=== PATIENT | female | born 1975 | race American Indian/Alaskan Native ===

== ENCOUNTER 2016-10-11 16:40 | Emergency (ER) | payer MEDICAID ==
[2016-10-11 18:36] LABS: Basophils % (Auto) 0.5 % (0.0-1.8); Eosinophils % (Auto) 6.8 % (0.0-4.3); Hemoglobin 11.5 gm/dl (10.1-14.3); Mean Corpuscular HGB Conc 32 % (30-34); Mean Corpuscular Hemoglobin 31 pg (28-32); Mean Corpuscular Volume 96 fl (79-97); Platelet Count 274 K/mm3 (140-440); Red Blood Count 3.75 M/mm3 (3.65-5.03); Red Cell Distribution Width 13.5 % (13.2-15.2); White Blood Count 9.2 K/mm3 (4.5-11.0)
[2016-10-11 18:48] LABS: Anion Gap 17 mmol/L; BUN/Creatinine Ratio 18.33; Blood Urea Nitrogen 11 mg/dL (7-17); Carbon Dioxide 24 mmol/L (22-30); Chloride 102.7 mmol/L (98-107); Glucose 94 mg/dL (65-100); Potassium 4.1 mmol/L (3.6-5.0); Sodium 140 mmol/L (137-145)
[2016-10-11] MEDS ORDERED: MORPHINE IV ONE (20:19)
[2016-10-11] MEDS ORDERED: MOTRIN PO ONE (20:19)
[2016-10-11] MEDS ORDERED: ZOFRAN IV ONE (20:19)
[2016-10-11] MEDS ORDERED: KEPPRA 1,000 MG/NS 0.75% 100ML 1,000 MG/100 ML BAG IV ONE (20:52)
[2016-10-11 21:13] LABS: Alanine Aminotransferase 9 units/L (7-56); Albumin 3.8 g/dL (3.9-5); Alkaline Phosphatase 73 units/L (35-129); Bilirubin,Total 0.3 mg/dL (0.1-1.2); Lipase 16 units/L (13-60); Total Protein 7.5 g/dL (6.3-8.2)
[2016-10-11 21:17] LABS: Bilirubin,Direct < 0.2 mg/dL (0-0.2); Bilirubin,Indirect 0.1 mg/dL
[2016-10-11 21:27] LABS: Bilirubin,Urine NEG (Negative); Blood,Urine NEG (Negative); Ketones,Urine NEG (Negative); Leukocyte Esterase,Urine TR (Negative); Mucus,Urine FEW /HPF; Nitrite,Urine NEG (Negative); Protein,Urine <15 mg/dL mg/dL (Negative); Urobilinogen,Urine < 2.0 mg/dL (<2.0)
[2016-10-11 21:39] LABS: Magnesium 2.1 mg/dL (1.7-2.3)
--- NOTE | 2016-10-12 00:23 | Emergency Department Report ---
HPI - General Chief Complaint: Seizure Time Seen by Provider: 10/11/16 20:11 - HPI HPI: The patient is a 41-year-old female who presents for evaluation of cough and chest pain. The patient reports cough and chest pain since this morning, for the past greater than 8 hours prior to my evaluation. She states that her cough has been nonproductive, that her chest pain has been bilateral, aching in quality, mild to moderate in severity, elicited with coughing, relieved with rest. The patient shares that she also experienced a seizure today at 2 PM. She has a history of seizure years ago but has not had a seizure recently. She has not been on antiseizure medication for some time. The patient denies trauma to the head or chest, headache, neck pain or stiffness, dyspnea, hemoptysis, unilateral leg swelling, oral contraceptive use, recent immobilization, history of DVT or PE, hx cancer. ED Past Medical Hx - Past Medical History Previous Medical History?: Yes Hx Hypertension: Yes Hx Seizures: Yes Additional medical history: deaf - Surgical History Past Surgical History?: Yes Additional Surgical History: abd surgery as per family - Social History Smoking Status: Never Smoker Substance Use Type: None - Medications Home Medications: Home Medications Medication Instructions Recorded Confirmed Last Taken Type Doxycycline Hyclate [Doxycycline 100 mg PO Q12HR #14 tab 10/12/16 Unknown Rx Hyclate TAB] HYDROcodone/APAP 7.5-325 [[place] 1 each PO Q8HR PRN #15 tablet 10/12/16 Unknown Rx 7.5-325 mg TAB] Ibuprofen [Motrin] 600 mg PO Q6HR #30 tablet 10/12/16 Unknown Rx levETIRAcetam [Keppra TAB] 500 mg PO BID #30 tablet 10/12/16 Unknown Rx ED Review of Systems ROS: Stated complaint: SEIZURE Other details as noted in HPI Constitutional: denies: fever ENT: denies: throat or neck pain Respiratory: reports cough denies: shortness of breath Cardiovascular: denies: chest pain Endocrine: denies unexplained weight loss or gain Gastrointestinal: denies: abdominal pain, nausea Genitourinary: denies: dysuria Musculoskeletal: denies: leg swelling Skin: denies: rash Neurological: reports denies: headache Hematological/Lymphatic: denies: easy bleeding or easy bruising Psych: denies sadness or hopelessness Physical Exam - Physical Exam Vital Signs: Vital Signs 10/11/16 10/11/16 10/11/16 16:48 18:18 18:20 Temperature 102.2 F H Pulse Rate 89 76 77 Respiratory 24 22 21 Rate Blood Pressure 166/99 O2 Sat by Pulse 98 Oximetry 10/11/16 10/11/16 10/11/16 18:40 18:50 18:59 Temperature Pulse Rate 64 74 Respiratory 21 17 18 Rate Blood Pressure 142/68 O2 Sat by Pulse 99 99 98 Oximetry 10/11/16 10/11/16 10/11/16 19:00 19:10 19:20 Temperature Pulse Rate 67 68 63 Respiratory 17 21 17 Rate Blood Pressure 142/68 147/84 139/76 O2 Sat by Pulse 98 98 97 Oximetry 10/11/16 10/11/16 10/11/16 19:30 19:40 19:50 Temperature Pulse Rate 73 70 67 Respiratory 13 17 18 Rate Blood Pressure 139/76 127/58 141/84 O2 Sat by Pulse 98 99 99 Oximetry 10/11/16 10/11/16 10/11/16 20:00 20:10 20:20 Temperature Pulse Rate 71 76 68 Respiratory 24 19 13 Rate Blood Pressure 141/84 147/81 132/84 O2 Sat by Pulse 96 99 99 Oximetry 10/11/16 10/11/16 10/11/16 20:30 20:40 20:42 Temperature Pulse Rate 75 72 Respiratory 26 H 13 18 Rate Blood Pressure 132/84 155/86 O2 Sat by Pulse 99 98 Oximetry 10/11/16 10/11/16 10/11/16 20:50 21:00 21:10 Temperature Pulse Rate 68 71 73 Respiratory 18 29 H 25 H Rate Blood Pressure 152/90 152/90 166/88 O2 Sat by Pulse 98 97 97 Oximetry 10/11/16 10/11/16 10/11/16 21:20 21:30 21:40 Temperature Pulse Rate 70 68 71 Respiratory 19 18 18 Rate Blood Pressure 166/88 166/88 142/88 O2 Sat by Pulse 98 97 96 Oximetry 10/11/16 10/11/16 10/11/16 21:50 22:00 22:10 Temperature Pulse Rate 72 74 73 Respiratory 16 17 18 Rate Blood Pressure 130/79 130/79 128/77 O2 Sat by Pulse 97 97 97 Oximetry 10/11/16 10/11/16 10/11/16 22:20 22:30 22:40 Temperature Pulse Rate 71 73 69 Respiratory 15 14 24 Rate Blood Pressure 166/88 127/79 127/79 O2 Sat by Pulse 97 96 98 Oximetry 10/11/16 10/11/16 10/11/16 22:50 22:56 23:00 Temperature 98.4 F Pulse Rate 71 66 Respiratory 15 16 Rate Blood Pressure 150/83 127/79 O2 Sat by Pulse 97 97 Oximetry 10/11/16 10/11/16 10/11/16 23:10 23:20 23:30 Temperature Pulse Rate 69 72 62 Respiratory 16 16 18 Rate Blood Pressure 131/69 122/73 122/73 O2 Sat by Pulse 97 96 95 Oximetry 10/11/16 10/11/16 10/12/16 23:41 23:51 00:00 Temperature Pulse Rate 64 64 72 Respiratory 11 L 15 15 Rate Blood Pressure 100/51 104/65 O2 Sat by Pulse 96 96 94 Oximetry 10/12/16 00:11 Temperature Pulse Rate 69 Respiratory 17 Rate Blood Pressure 104/65 O2 Sat by Pulse 96 Oximetry Physical Exam: General: well-nourished, well-developed, no acute distress Head: Normocephalic, atraumatic Eyes: normal sclera, patient cross eyed (at baseline per adult niece in room), EOMI, PERRL ENT: Mucous membranes are pink and moist Neck: trachea midline, neck supple, No neck stiffness, no cervical adenopathy Respiratory: Breath sounds equal bilaterally, no wheezing, rales, or rhonchi Cardio: S1 and S2 present, no murmurs, rubs, gallops, capillary refill is brisk Abdomen: Normoactive bowel sounds, soft abdomen, no tenderness Chest WALL/Back: Positive tenderness to palpation of the bilateral anterior chest wall Musc: No pitting edema Skin: No rash Neuro: Alert and oriented, no facial drooping, no pronator drift, no obvious gross sensation and motor deficit in the arms or legs, reflexes 2+ symmetric on DTR testing, Romberg downgoing, no obvious gross neuro deficits on exam Psych: Normal affect ED Course Vital Signs 10/11/16 10/11/16 10/11/16 16:48 18:18 18:20 Temperature 102.2 F H Pulse Rate 89 76 77 Respiratory 24 22 21 Rate Blood Pressure 166/99 O2 Sat by Pulse 98 Oximetry 10/11/16 10/11/16 10/11/16 18:40 18:50 18:59 Temperature Pulse Rate 64 74 Respiratory 21 17 18 Rate Blood Pressure 142/68 O2 Sat by Pulse 99 99 98 Oximetry 10/11/16 10/11/16 10/11/16 19:00 19:10 19:20 Temperature Pulse Rate 67 68 63 Respiratory 17 21 17 Rate Blood Pressure 142/68 147/84 139/76 O2 Sat by Pulse 98 98 97 Oximetry 10/11/16 10/11/16 10/11/16 19:30 19:40 19:50 Temperature Pulse Rate 73 70 67 Respiratory 13 17 18 Rate Blood Pressure 139/76 127/58 141/84 O2 Sat by Pulse 98 99 99 Oximetry 10/11/16 10/11/16 10/11/16 20:00 20:10 20:20 Temperature Pulse Rate 71 76 68 Respiratory 24 19 13 Rate Blood Pressure 141/84 147/81 132/84 O2 Sat by Pulse 96 99 99 Oximetry 10/11/16 10/11/16 10/11/16 20:30 20:40 20:42 Temperature Pulse Rate 75 72 Respiratory 26 H 13 18 Rate Blood Pressure 132/84 155/86 O2 Sat by Pulse 99 98 Oximetry 10/11/16 10/11/16 10/11/16 20:50 21:00 21:10 Temperature Pulse Rate 68 71 73 Respiratory 18 29 H 25 H Rate Blood Pressure 152/90 152/90 166/88 O2 Sat by Pulse 98 97 97 Oximetry 10/11/16 10/11/16 10/11/16 21:20 21:30 21:40 Temperature Pulse Rate 70 68 71 Respiratory 19 18 18 Rate Blood Pressure 166/88 166/88 142/88 O2 Sat by Pulse 98 97 96 Oximetry 10/11/16 10/11/16 10/11/16 21:50 22:00 22:10 Temperature Pulse Rate 72 74 73 Respiratory 16 17 18 Rate Blood Pressure 130/79 130/79 128/77 O2 Sat by Pulse 97 97 97 Oximetry 10/11/16 10/11/16 10/11/16 22:20 22:30 22:40 Temperature Pulse Rate 71 73 69 Respiratory 15 14 24 Rate Blood Pressure 166/88 127/79 127/79 O2 Sat by Pulse 97 96 98 Oximetry 10/11/16 10/11/16 10/11/16 22:50 22:56 23:00 Temperature 98.4 F Pulse Rate 71 66 Respiratory 15 16 Rate Blood Pressure 150/83 127/79 O2 Sat by Pulse 97 97 Oximetry 10/11/16 10/11/16 10/11/16 23:10 23:20 23:30 Temperature Pulse Rate 69 72 62 Respiratory 16 16 18 Rate Blood Pressure 131/69 122/73 122/73 O2 Sat by Pulse 97 96 95 Oximetry 10/11/16 10/11/16 10/12/16 23:41 23:51 00:00 Temperature Pulse Rate 64 64 72 Respiratory 11 L 15 15 Rate Blood Pressure 100/51 104/65 O2 Sat by Pulse 96 96 94 Oximetry 10/12/16 00:11 Temperature Pulse Rate 69 Respiratory 17 Rate Blood Pressure 104/65 O2 Sat by Pulse 96 Oximetry ED Medical Decision Making - Lab Data Result diagrams: 10/11/16 18:17 10/11/16 18:17 - Medical Decision Making The patient was seen and examined by myself. The patient is placed on a vehicle service agent and continuous pulse ox. On initial evaluation, the patient was found to be in no distress. Evaluation orders were placed. The patient is given IV Keppra for treatment of seizure and IV morphine for treatment of her pain. The patient is given a tablet of Motrin for fever. Lab results are unrevealing including normal WBC, LFTs, lipase, and troponin level. Additionally Preg test is negative and urinalysis is unremarkable. Chest x-ray demonstrates cardiomegaly, and is negative for pleural effusions, pneumonia, widening of the mediastinum, loss of the aortic knob, presence of apical cap, or other signs of aortic dissection. Evaluation findings are consistent with upper respiratory infection and suspicious for febrile seizure versus reoccurrence of patient's epilepsy. As the patient has no white count, normal troponin level, and non-emergent chest x- ray findings, likelihood of myocarditis or endocarditis are low. Although blood cultures are obtained. As patient has no white count, no headache, no neck stiffness, and no neuro deficits on exam, likelihood of meningitis is low. The patient has been monitored in the emergency department for greater than 4 hours without any seizure-like activity whatsoever. The patient was reevaluated and reported that their symptoms were markedly improved. The patient's Temperature has resolved. The patient is stable for discharge with outpatient follow-up. The patient is given follow-up and return instructions. The patient expressed understanding and agreed with the plan. The patient is discharged in stable condition. Critical care attestation.: If time is entered above; I have spent that time in minutes in the direct care of this critically ill patient, excluding procedure time. ED Disposition Clinical Impression: Acute upper respiratory infection, Acute chest pain, Fever in adult, Seizure, Acute viral syndrome Disposition: DISCHARGED TO HOME OR SELFCARE Is pt being admited?: No Does the pt Need Aspirin: No Condition: Stable Instructions: Chest Pain (ED), Epilepsy (ED), Upper Respiratory Infection (ED) , Viral Syndrome (ED) Prescriptions: Doxycycline Hyclate [Doxycycline Hyclate TAB] 100 mg PO Q12HR #14 tab HYDROcodone/APAP 7.5-325 [[place] 7.5-325 mg TAB] 1 each PO Q8HR PRN #15 tablet PRN Reason: Pain Ibuprofen [Motrin] 600 mg PO Q6HR #30 tablet levETIRAcetam [Keppra TAB] 500 mg PO BID #30 tablet Referrals: PRIMARY CARE, [Primary Care Provider] - 3-5 Days Time of Disposition: 00:17
[2016-10-12 01:50] VITALS: BP 106/58
--- NOTE | 2016-10-12 08:46 | XRay Report ---
AP chest x-ray. Findings: There is suboptimal inspiration. The heart is probably normal in size with normal pulmonary vascularity. The lungs are clear. There is no pleural fluid. Impression: No acute findings.
== END 2016-10-12 00:45 | disposition home or self-care (01) ==
LOC: ED 16:40
DX: R06.9 Unspecified abnormalities of breathing (principal); R07.9 Chest pain, unspecified; R56.9 Unspecified convulsions; B34.9 Viral infection, unspecified; I10 Essential (primary) hypertension
CPT/HCPCS: 36415; 71010; 80048; 80074; 81001; 82140; 82962; 83690; 83735; 83880; 84484; 84703; 85025; 87400; 93005; 93010; 96365; 96375; 99285; J1953; J2270; J2405